=== PATIENT | female | born 1955 | race Caucasian/White ===

== ENCOUNTER 2021-03-29 09:27 | Emergency (ER) | payer MEDICARE, SELFPAY ==
[2021-03-29 09:51] VITALS: BP 134/82; PULSE 74; RESP 18; TEMP 36.8; O2SAT 96; BMI 24.7
--- NOTE | 2021-03-29 10:14 | HMH.EDUTC ---
[facility] [place] Disposition Clinical Impression: Acute bronchitis Qualifiers: Bronchitis organism: unspecified organism Qualified Code(s): J20.9 - Acute bronchitis, unspecified Disposition: Home, Self-Care Condition on Discharge: Good Instructions: DI for Acute Bronchitis Additional Instructions: Drink plenty of fluids. Take tylenol for pain or fever. Take the medications as directed. Follow up with your regular doctor. GO TO THE ER FOR ANY WORSENING SYMPTOMS Prescriptions: predniSONE [Prednisone 20mg Tab] 20 mg PO BID 4 Days #8 tab Transmission Status: Received by [employer] # Benzonatate [Tessalon Perle 100mg Cap] 100 mg PO TIDP PRN #30 cap PRN Reason: Cough Transmission Status: Received by [facility] [employer] [facility] # Azithromycin [Z-Rashawn 250mg Tab*] 250 mg PO UD DOSE PK #6 tab Transmission Status: Received by [facility] [employer] [facility] # Referrals: Carol Boykin MD [Primary Care Provider] - Time of Disposition: 10:19 Medical Decision Making - Medical Records Medical records reviewed: No: I reviewed the patient's medical records. - Joshua Inquiry Pt receiving controlled substance: No Vital Signs: 03/29/21 09:51 03/29/21 10:35 Temperature 98.2 F 98.3 F Temperature Source Oral Pulse Rate 74 Pulse Rate [Right] 74 Respiratory Rate 18 16 Blood Pressure 128/89 Blood Pressure [Right Arm] 134/82 Blood Pressure Mean [Right Arm] 99 02 Sat by Pulse Oximetry 96 Oxygen Delivery Method Room Air [facility] [place] HPI - General Stated complaint: cough Time Seen by Provider: 03/29/21 10:14 Mode of Arrival: Ambulatory Source of Information: Patient Limitations: No Limitations Description of Symptoms (Recalled from Triage Doc. by RN): pt states she had a cold last week. shes feeling better but has a lingering cough that seems to have moved into her chest. its nonproductive. (pt has had the covid vaccine and does not want tested.) HEENT Symptoms (Recalled from RN notes): No Resp Symptoms (Recalled from RN notes): Yes (nonproductive cough) Skin Symptoms (Recalled from RN notes): No MS Symptoms (Recalled from RN notes): No Functional Status (Recalled from RN notes): na - History of Present Illness Provider Complaint: She states that she has had a lingering cough for the past 1 week. She denies fever and chills. - Related Data Previous Rx's Medication Instructions Recorded Azithromycin [Z-Rashawn 250mg Tab*] 250 mg PO UD DOSE PK #6 tab 03/29/21 Benzonatate [Tessalon Perle 100mg 100 mg PO TIDP PRN #30 cap 03/29/21 Cap] predniSONE [Prednisone 20mg 20 mg PO BID 4 Days #8 tab 03/29/21 Tab] Allergies Allergy/AdvReac Type Severity Reaction Status Date / Time No Known Allergies Allergy Verified 03/29/21 09:58 - Worker's Comp Is this a Worker's Comp case?: No [facility] History - Hepatitis A Screen Drug use history?: No High risk sexual behaviors?: No History of sexually transmitted infection?: No Currently employed?: No Childcare worker?: No Do you have indoor plumbing?: Yes Do you have electricity?: Yes Attestation statement:: This patient has been screened for Hepatitis A risk factors. I have reviewed the patient's past medical history: Yes ROS Obtained: Yes All systems reviewed & no additional complaints - Constitutional Constitutional: Reports chills, Denies fever(s), Reports poor appetite, Reports malaise - Eyes Eyes: Denies eye discharge - ENT Ears, Nose, Mouth, and Throat: Reports as per HPI - Cardiovascular Cardiovascular: Denies chest pain - Respiratory Respiratory: Reports chest congestion, Reports cough, Denies dyspnea, Denies stridor, Reports wheezing - Gastrointestinal Gastrointestingal: Reports: nausea. Denies: abdominal pain, diarrhea, vomiting Physical Exam - General General appearance: alert, in no apparent distress - Head Head exam: atraumatic, normocephalic, normal inspection - Eye Eye exam: Present: normal appearance, P
[2021-03-29 10:35] VITALS: BP 128/89; PULSE 74; RESP 16; TEMP 36.8
== END 2021-03-29 10:35 | disposition home or self-care (01) ==
PROVIDERS: Emergency Provider Nurse Practitioner Family; PCP Family Medicine
DX: J20.9 Acute bronchitis, unspecified (principal)
CPT/HCPCS: G0463; 99202